=== PATIENT | female | born 1985 | race Caucasian/White ===

== ENCOUNTER 2017-04-10 17:02 | Emergency (ER) | payer BC ==
--- NOTE | 2017-04-10 17:04 | UC ---
Complaint Female HPI - HPI Summary HPI Summary: 31 YEAR OLD FEMALE PRESENTS WITH COMPLAINS OF VAGINAL BLEEDING. - History Of Current Complaint Stated Complaint: VAGINAL BLEEDING Time Seen by Provider: 04/10/17 17:03 Hx Obtained From: Patient Onset/Duration: Sudden Onset Timing: Constant Severity Initially: Moderate Severity Currently: Moderate Character: Sharp, Cramping - Allergies/Home Medications Allergies/Adverse Reactions: Allergies Allergy/AdvReac Type Severity Reaction Status Date / Time No Known Allergies Allergy Verified 04/10/17 17:33 Home Medications: Home Medications NK [No Home Medications Reported] 04/10/17 [History Confirmed 04/10/17] PMH/Surg Hx/FS Hx/Imm Hx Previously Healthy: Yes Review of Systems Constitutional: Negative Skin: Negative Eyes: Negative ENT: Negative Respiratory: Negative Cardiovascular: Negative Gastrointestinal: Negative Genitourinary: Negative Motor: Negative Neurovascular: Negative Musculoskeletal: Negative Neurological: Negative Psychological: Negative All Other Systems Reviewed And Are Negative: Yes Physical Exam Triage Information Reviewed: Yes Vital Signs Reviewed: Yes Eye Exam: Normal ENT Exam: Normal Dental Exam: Normal Neck exam: Normal Neck: Positive: 1 Respiratory Exam: Normal Cardiovascular Exam: Normal Abdominal Exam: Normal Musculoskeletal Exam: Normal Neurological Exam: Normal Psychological Exam: Normal Skin Exam: Normal Complaint Female Dx - Differential Dx/Diagnosis Provider Diagnoses: VAGINAL BLEEDING Discharge - Discharge Plan Condition: Stable Disposition: OTHER Discharge Disposition Comment: PATIENT SUGGESTED TO GO TO THE ER FOR VAGINAL BLEEDING. Patient Education Materials: Dysfunctional Uterine Bleeding (ED) Referrals: Jeanie Ozuna MD [Primary Care Provider] - Additional Instructions: PATIENT SUGGESTED TO GO TO THE ER FOR VAGINAL BLEEDING.
[2017-04-10 17:33] VITALS: BP 114/85
== END 2017-04-10 17:51 ==
LOC: UCEAST 17:02
DX: N93.9 Abnormal uterine and vaginal bleeding, unspecified (principal)

== ENCOUNTER 2017-04-10 18:09 | Emergency (ER) | payer BC ==
[2017-04-10 22:00] LABS: Hematocrit 40 % (35-47); Hemoglobin 13.2 g/dl (12.0-16.0); Mean Corpuscular HGB Conc 33 g/dl (31-36); Mean Corpuscular Hemoglobin 28 pg (27-31); Mean Corpuscular Volume 85 fL (80-97); Mean Platelet Volume 8 um3 (7.4-10.4); Red Blood Count 4.68 10^6/ul (4.0-5.4); Red Cell Distribution Width 13 % (10.5-15); White Blood Count 7.2 10^3/ul (3.5-10.8)
--- NOTE | 2017-04-10 23:00 | ED ---
Francisco Mueller Alfonso scribed for Valentin Rivera MD on 04/10/17 at 2157 . GI/ HPI - HPI Summary HPI Summary: This patient is a 31 year old F presenting to [facility] accompanied by with a chief complaint of vaginal bleeding bright red with some clotting since approximately 1530 today. The patient rates the pain 4/10 in severity. Symptoms aggravated by nothing. Symptoms alleviated by nothing. Patient reports abdominal cramping, lightheadedness (resolved), and dizziness (resolved). [id number]. She took 2 tests both were negative. She recently stopped her PCP which she was on for approximately 15 years. She is actively trying to become . She reports LMP 03/31/17. - History of Current Complaint Chief Complaint: EDVaginalBleeding Time Seen by Provider: 04/10/17 21:28 Stated Complaint: VAGINAL BLEEDING Hx Obtained From: Patient Hx Last Menstrual Period: 03/31/17 Onset/Duration: Started Hours Ago, Resolved Timing: Constant Current Severity: Moderate Pain Intensity: 4 - /10 Associated Signs and Symptoms: Positive: Other: - abdominal cramping, lightheadedness (resolved), and dizziness (resolved). Aggravating Factor(s): Nothing Alleviating Factor(s): Spontaneous Resolution - Allergy/Home Medications Allergies/Adverse Reactions: Allergies Allergy/AdvReac Type Severity Reaction Status Date / Time No Known Allergies Allergy Verified 04/10/17 17:33 PMH/Surg Hx/FS Hx/Imm Hx Endocrine/Hematology History: Denies: Hx Diabetes, Hx Thyroid Disease Cardiovascular History: Denies: Hx Hypertension Respiratory History: Denies: Hx Asthma, Hx Chronic Obstructive Pulmonary Disease (COPD) GI History: Denies: Hx Ulcer - Surgical History Surgery Procedure, Year, and Place: Ganglion removal Infectious Disease History: No Infectious Disease History: Denies: Hx Clostridium Difficile, Hx Hepatitis, Hx Human Immunodeficiency Virus (HIV), Hx of Known/Suspected MRSA, Hx Shingles, Hx Tuberculosis, Hx Known/ Suspected VRE, Hx Known/Suspected VRSA, History Other Infectious Disease, Traveled Outside the [place] in Last 30 Days - Family History Known Family History: Positive: Hypertension - Social History Alcohol Use: Occasionally Substance Use Type: Reports: None Smoking Status (MU): Never Smoked Tobacco Review of Systems Negative: Fever, Chills Negative: Erythema Negative: Sore Throat Negative: Chest Pain Negative: Shortness Of Breath, Cough Positive: Abdominal Pain - cramping. Negative: Vomiting, Nausea Positive: other - vaginal bleeding. Negative: dysuria, hematuria Negative: Myalgia, Edema Negative: Rash Neurological: Other - lightheadedness (resolved), and dizziness (resolved) All Other Systems Reviewed And Are Negative: Yes Physical Exam - Summary Physical Exam Summary: Constitutional: Well-developed, Well-nourished, Alert. (-) Distressed Skin: Warm, Dry HENT: Normocephalic; Atraumatic Eyes: Conjunctiva normal Neck: Musculoskeletal ROM normal neck. (-) JVD, (-) Stridor, (-) Tracheal deviation Cardio: Rhythm regular, rate normal, Heart sounds normal; Intact distal pulses; The pedal pulses are 2+ and symmetric. Radial pulses are 2+ and symmetric. (-) Murmur Pulmonary/Chest wall: Effort normal. (-) Respiratory distress, (-) Wheezes, (-) Rales Abd: Soft, (-) Tenderness, (-) Distension, (-) Guarding, (-) Rebound Musculoskeletal: (-) Edema Lymph: (-) Cervical adenopathy Neuro: Alert, Oriented x3 Psych: Mood and affect Normal Triage Information Reviewed: Yes Vital Signs On Initial Exam: Initial Vitals Temp Pulse Resp BP Pulse Ox 97.8 F 63 20 119/71 99 04/10/17 18:44 04/10/17 18:44 04/10/17 18:44 04/10/17 18:44 04/10/17 18:44 Vital Signs Reviewed: Yes Diagnostics - Vital Signs Vital Signs Temp Pulse Resp BP Pulse Ox 04/10/17 20:45 98.7 F 60 16 121/75 100 04/10/17 18:44 97.8 F 63 20 119/71 99 - Laboratory Lab Results: Lab Results 04/10/17 04/10/17 Range/Units 21:50 21:50 WBC 7.2 (3.5-10.8) 10^3/ul RBC 4.68 (4.0-5.4) 10^6/ul Hgb 13.2 (12.0-16.0) g/dl Hct 40 (35-47) % MCV 85 (80-97) fL MCH 28 (27-31) pg MCHC 33 (31-36) g/dl RDW 13 (10.5-15) % Plt Count 238 (150-450) 10^3/ul MPV 8 (7.4-10.4) um3 Beta HCG, Quant 5493.00 mIU/mL Result Diagrams: 04/10/17 21:50 Lab Statement: Any lab studies that have been ordered have been reviewed, and results considered in the medical decision making process. - Additional Comments Diagnostic Additional Comments: US transvaginal pending at this time. Pending official interpretation from radiologist. See Terapio. GIGU Course/Dx - Course Assessment/Plan: This patient is a 31 year old F presenting to [facility] accompanied by with a chief complaint of vaginal bleeding bright red with some clotting since approximately 1530 today. The patient rates the pain 4/ 10 in severity. Symptoms aggravated by nothing. Symptoms alleviated by nothing. Patient reports abdominal cramping, lightheadedness (resolved), and dizziness ( resolved). G0A0P0. She took 2 tests both were negative. She recently stopped her PCP which she was on for approximately 15 years. She is actively trying to become . She reports LMP 03/31/17. US transvaginal pending at this time. Pending official interpretation from radiologist. See Terapio. Patient is signed out to Dr. Amezcua, pending disposition, awaiting US and labs. - Diagnoses Provider Diagnoses: Vaginal bleeding in Discharge - Discharge Plan Condition: Stable Disposition: OTHER Discharge Disposition Comment: Pt is signed out to Dr. Amezcua, pending disposition , awaiting US and labs. Referrals: Jeanie Ozuna MD [Primary Care Provider] - 3 Days Additional Instructions: RETURN TO THE EMERGENCY DEPARTMENT FOR CHANGING OR WORSENING SYMPTOMS. The documentation as recorded by the Francisco singh Alfonso accurately reflects the service I personally performed and the decisions made by me, Valentin Rivera MD.
--- NOTE | 2017-04-11 01:49 | ED ---
Malik Mueller Rebecca, scribed for Yosi Amezcua MD on 04/11/17 at 0137 . Progress - Progress Note Progress Note: Pt was signed out from Dr. Rivera, pending disposition, awaiting US. Ultrasound shows IUP gestational sac without pole with small implantation bleed. I recommended that she obtain follow up sono and labs, pt in no acute distress, pt and family agree to and understnad dc instructions . - Results/Orders Results/Orders: US Obstetric: Gestational sac without yalk sac or pole. Small implantation bleed. Recommend follow up sonography to evaluate for viability. Re-Evaluation - Re-Evaluation First Eval Re-Evaluation Time: 01:37 Comment: Discussed US results with the pt. Course/Dx - Diagnoses Provider Diagnoses: Vaginal bleeding in The documentation as recorded by the Malik singh Rebecca accurately reflects the service I personally performed and the decisions made by me, Yosi Amezcua MD.
[2017-04-11 02:00] VITALS: BP 121/78
--- NOTE | 2017-04-11 07:49 | RAD ---
INDICATION: Early with bleeding COMPARISON: None FINDINGS: Transvaginal scans show a cystic structure within the endometrial cavity with endometrial reactive change. This is likely a gestational sac. The sac appears empty. The sac size would correspond to a 5 week gestation. The adnexa appear normal. There is no free fluid or adnexal mass. The right ovary measures 2.9 x 1.2 x 1.6 cm the left 2.5 x 1.3 x 1.6 cm. There is a small left paraovarian cyst measuring 0.7 cm. Uterine measurements are 6.9 x 2.4 x 3.5 cm IMPRESSION: Gestational sac without identifiable pole. Suggest correlation with serial beta-hCGs and follow-up ultrasonography to assess for viability.
== END 2017-04-11 01:58 | disposition home or self-care (01) ==
LOC: ED 18:09
DX: O46.90 Antepartum hemorrhage, unspecified, unspecified trimester (principal)
CPT/HCPCS: 36415; 76817; 84702; 85027; 86850; 86900; 86901; 99282

== ENCOUNTER 2017-12-14 17:37 | Inpatient (IN) | payer BC ==
--- NOTE | 2017-12-14 18:18 | HP ---
General Information - General Information Maternal Age: 31 Grav: 1 Estimated Due Date: 12/13/17 Determined By: Early Ultrasound Maternal Blood Type and Rh: A Positive - Results this Serology/RPR Result: Non-Reactive Rubella Result: Immune HBsAg Result: Negative HIV Result: Negative GBS Culture Result: Negative Past Medical History Delivery History: See Records Pertinent Past Medical History: Non-Contributory Pertinent Past Surgical History: None Pertinent Family History: Non-Contributory - Antepartal Records Antepartal Records: Reviewed, Uncomplicated Review of Systems Constitutional: Uncomfortable CV Complaint: No Respiratory: Shortness of Breath: No Gastrointestinal: No Nausea/Vomiting, Normal Bowel Movement Genitourinary: Bleeding, No Dysuria, No Leaking Fluid Musculoskeletal: Contractions Neurological: No Headache, No Visual Changes Movement: Normal Exam Allergies/Adverse Reactions: Allergies No Known Allergies Allergy (Verified 04/10/17 17:33) see Obix - Exam Abdomen: No Upper Quadrant Pain Breast: Breast Exam Deferred CVA: No CVA Tenderness Extremities: No Edema Heart: Normal Rhythm/Heart Sounds HEENT: No Significant Findings Lungs: Clear Bilaterally Rectal: Rectal Exam Deferred Reflexes: - - deferred - Abdominal Exam Abdomen Exam: Non-Tender, Fundal Height Consistent with Dates - Ultrasound/Biophysical Profile Ultrasound Status: Not Done Targeted Exam Findings See L&D Outpatient Visit Provider Note for Findings: N/A Estimated Weight: 8lb Cervical Exam: Complete Effacement: 100% Station: +1 Presenting Part: Vertex Membrane Status: Intact Bleeding/Discharge: Bloody Show EFM Findings - External Monitor Findings Baseline Heart Rate: 140 External Monitor Findings: Accelerations Present, No Pattern of Variable or Late Decelerations, Variability Moderate Contractions: Regular, Strong, 45-90 Seconds Contraction Frequency: q2-4 Assessment/Plan - Reason for Visit Reason for Visit: IUP @ 40+1 weeks gestation in active labor, no evidence metabolic acidemia , IBOW - Plan Plan: Active Labor - Date/Time of Admission Date of Admission: 12/14/17 Time of Admission: 18:01
[2017-12-15] MEDS ORDERED: Acetaminophen TAB* 325 MG PO PRN (00:48)
[2017-12-15] MEDS ORDERED: Glycerin ADULT SUPP PR PRN (00:48)
[2017-12-15] MEDS ORDERED: Oxytocin in LR* 0 UNITS/0 ML BAG IVPB ONE (01:36)
[2017-12-15] MEDS: Witch Hazel PAD* JAR TOPICAL PRN (02:45)
[2017-12-15] MEDS: Dibucaine 1% 28.35 GM TUBE PR PRN (02:45)
[2017-12-15] MEDS: Ibuprofen TAB* 600 MG PO PRN (05:25)
[2017-12-15] MEDS ORDERED: Ammonia Inhalant* 1 EA AMP ONE (05:58)
[2017-12-15 08:48] LABS: Hematocrit 31 % (35-47); Hemoglobin 10.9 g/dl (12.0-16.0); Mean Corpuscular HGB Conc 35 g/dl (31-36); Mean Corpuscular Hemoglobin 30 pg (27-31); Mean Corpuscular Volume 85 fL (80-97); Platelet Count 198 10^3/ul (150-450); Red Blood Count 3.68 10^6/ul (4.00-5.40); Red Cell Distribution Width 14 % (10.5-15); White Blood Count 20.9 10^3/ul (3.5-10.8)
[2017-12-15 09:29] LABS: ABS Basophils 0 10^3/ul (0-0.2); ABS Eosinophils 0 10^3/ul (0-0.6); ABS Lymphocytes 1.6 10^3/ul (1.0-4.8); ABS Monocytes 1.7 10^3/ul (0-0.8); ABS Neutrophils 17.5 10^3/ul (1.5-7.7); ABS Nucleated RBC 0 10^3/ul; Eosinophil % 0 % (0-6); Lymphocyte % 7.8 % (25-47); Nucleated Red Blood Cells % 0
[2017-12-15] MEDS: Docusate CAP* 100 MG PO SCH ×3 (10:27→20:12)
[2017-12-15] MEDS ORDERED: Misoprostol TAB* 200 MCG ONE (13:14)
[2017-12-15] MEDS ORDERED: OXYTOCIN* 10 UNITS/ML 1 ML VIAL ONE (13:14)
[2017-12-15] MEDS ORDERED: Lidocaine 1% INJ* 10 MG/ML 30 ML SDV ONE (16:54)
[2017-12-15 17:52] LABS: ABS Basophils 0.1 10^3/ul (0-0.2); ABS Eosinophils 0 10^3/ul (0-0.6); ABS Lymphocytes 1.9 10^3/ul (1.0-4.8); ABS Monocytes 1.5 10^3/ul (0-0.8); ABS Neutrophils 11.3 10^3/ul (1.5-7.7); ABS Nucleated RBC 0 10^3/ul; Eosinophil % 0.1 % (0-6); Hematocrit 29 % (35-47); Lymphocyte % 13.1 % (25-47); Mean Corpuscular HGB Conc 34 g/dl (31-36); Mean Corpuscular Hemoglobin 29 pg (27-31); Mean Corpuscular Volume 86 fL (80-97); Mean Platelet Volume 9.3 um3 (7.4-10.4); Nucleated Red Blood Cells % 0; Platelet Count 199 10^3/ul (150-450); Red Blood Count 3.42 10^6/ul (4.00-5.40); Red Cell Distribution Width 14 % (10.5-15); White Blood Count 14.9 10^3/ul (3.5-10.8)
[2017-12-15 18:06] LABS: EGFR Non-African American 164.7 (>60)
[2017-12-15] MEDS ORDERED: Benzocaine/Menthol LOZ* 1 LOZENGE PO PRN (18:10)
[2017-12-15] MEDS: Clindamycin 900 MG IVPREMIX(* 900 MG/50 ML SDV IV SCH ×2 (18:20→21:05)
[2017-12-15] MEDS ORDERED: GENTAMICIN IV SCH (19:30)
[2017-12-15] MEDS ORDERED: Gentamicin IVPREMIX 100 MG/100 ML BAG IV SCH (19:30)
[2017-12-15] MEDS ORDERED: Gentamicin ADULT per pharmacy 1 NOTE MISC FOLLOW UP PRN (20:23)
[2017-12-15] MEDS ORDERED: GENTAMICIN ADULT IVPB SCH (22:00)
[2017-12-15] MEDS ORDERED: NS 0.9% IVPB SCH (22:00)
[2017-12-16] MEDS: Clindamycin 900 MG IVPREMIX(* 900 MG/50 ML SDV IV SCH ×3 (02:52→19:55)
[2017-12-16] MEDS: GENTAMICIN ADULT IVPB SCH ×3 (04:13→21:14)
[2017-12-16] MEDS: NS 0.9% IVPB SCH ×3 (04:13→21:14)
[2017-12-16] MEDS ORDERED: Lidocaine 2.5%/Prilocain 2.5%* 5 GM TUBE ONE (04:24)
[2017-12-16 07:06] LABS: ABS Basophils 0 10^3/ul (0-0.2); ABS Eosinophils 0 10^3/ul (0-0.6); ABS Lymphocytes 2.2 10^3/ul (1.0-4.8); ABS Neutrophils 9.2 10^3/ul (1.5-7.7); ABS Nucleated RBC 0 10^3/ul; Eosinophil % 0.3 % (0-6); Hematocrit 24 % (35-47); Hemoglobin 8.3 g/dl (12.0-16.0); Lymphocyte % 17.6 % (25-47); Mean Corpuscular HGB Conc 34 g/dl (31-36); Mean Corpuscular Hemoglobin 29 pg (27-31); Mean Corpuscular Volume 86 fL (80-97); Mean Platelet Volume 9.3 um3 (7.4-10.4); Nucleated Red Blood Cells % 0; Platelet Count 151 10^3/ul (150-450); Red Blood Count 2.84 10^6/ul (4.00-5.40); Red Cell Distribution Width 14 % (10.5-15); White Blood Count 12.4 10^3/ul (3.5-10.8)
[2017-12-16] MEDS: Docusate CAP* 100 MG PO SCH ×3 (08:45→19:38)
[2017-12-16] MEDS: Ibuprofen TAB* 600 MG PO PRN ×2 (08:45→20:06)
[2017-12-16] MEDS: Ferrous Gluconate TAB* 324 MG TAB PO SCH ×2 (08:45→19:38)
[2017-12-16] MEDS ORDERED: Gentamicin Trough Level 1 NOTE MISC FOLLOW UP SCH (11:00)
[2017-12-16] MEDS ORDERED: Gentamicin PEAK LEVEL* 1 NOTE MISC FOLLOW UP SCH (12:30)
[2017-12-16] MEDS: Dibucaine 1% 28.35 GM TUBE PR PRN (15:04)
[2017-12-17] MEDS: Clindamycin 900 MG IVPREMIX(* 900 MG/50 ML SDV IV SCH ×2 (03:32→10:52)
[2017-12-17] MEDS: GENTAMICIN ADULT IVPB SCH (04:14)
[2017-12-17] MEDS: NS 0.9% IVPB SCH (04:14)
[2017-12-17 07:44] VITALS: BP 121/62
[2017-12-17] MEDS: Ferrous Gluconate TAB* 324 MG TAB PO SCH (09:22)
[2017-12-17] MEDS: Docusate CAP* 100 MG PO SCH ×2 (09:22→15:12)
[2017-12-17] MEDS: Witch Hazel PAD* JAR TOPICAL PRN (15:12)
== END 2017-12-17 18:08 | disposition home or self-care (01) | DRG 560 ==
LOC: MCHOBOUT 17:37 → MCHOB 18:01
PROVIDERS: ADMIT Midwife; ATTEND Obstetrics & Gynecology
PROC: 10D07Z6 Extraction of Products of Conception, Vacuum, Via Natural or Artificial Opening (ICD-10-PCS; principal; 2017-12-15)
PROC: 10907ZC Drainage of Amniotic Fluid, Therapeutic from Products of Conception, Via Natural or Artificial Opening (ICD-10-PCS; 2017-12-15)
PROC: 0HQ9XZZ Repair Perineum Skin, External Approach (ICD-10-PCS; 2017-12-15)
DX: O48.0 Post-term pregnancy (principal); O72.2 Delayed and secondary postpartum hemorrhage; O71.4 Obstetric high vaginal laceration alone; O86.12 Endometritis following delivery; O99.344 Other mental disorders complicating childbirth; O90.89 Other complications of the puerperium, not elsewhere classified; O90.81 Anemia of the puerperium; D64.9 Anemia, unspecified; F41.9 Anxiety disorder, unspecified; Z3A.40 40 weeks gestation of pregnancy; Z37.0 Single live birth
CPT/HCPCS: 36415; 80053; 80170; 85025; 86850; 86900; 86901; A9270-GY; J1580; J2590